=== PATIENT | female | born 2000 | race Hispanic/Latino ===

== ENCOUNTER 2020-12-03 13:10 | Emergency (ER) | payer OTHER ==
[~2020-12-03] VITALS: Ht 167.6 cm; Wt 57.0 kg
[2020-12-03 16:15] VITALS: BP 112/72
== END 2020-12-03 16:16 | disposition home or self-care (01) ==
LOC: M ED 13:10
DX: Z32.02 Encounter for pregnancy test, result negative (principal)

== ENCOUNTER 2021-02-15 20:08 | Emergency (ER) | payer OTHER ==
[~2021-02-15] VITALS: Ht 167.6 cm; Wt 56.4 kg
[2021-02-15 22:28] LABS: BASO # 0.1 10^3/uL (0.0-0.2); BASO % 0.4 % (0.0-1.0); EOS # 0.3 10^3/uL (0.0-0.5); EOS % 1.9 % (0.0-3.0); HEMOGLOBIN 13.8 g/dl (12.0-15.5); LYMPH # 3.2 10^3/uL (1.5-5.0); LYMPH % 20.1 % (24.0-44.0); MEAN CORPUSCULAR HEMOGLOBIN 29.1 pg (27.0-33.0); MEAN CORPUSCULAR HGB CONC 34.5 g/dl (32.0-36.5); MEAN CORPUSCULAR VOLUME 84.2 fl (80.0-96.0); MONO # 1.1 10^3/uL (0.0-0.8); MONO % 6.9 % (2.0-8.0); NEUTROPHILS # 11.2 10^3/uL (1.5-8.5); NEUTROPHILS % 70.3 % (36.0-66.0); PLATELET COUNT, AUTOMATED 410 10^3/uL (150-450); RED BLOOD COUNT 4.75 10^6/uL (4.00-5.40)
[2021-02-15 23:15] LABS: BLOOD UREA NITROGEN 9 MG/DL (7-18); CARBON DIOXIDE LEVEL 24 MEQ/L (21-32); CHLORIDE LEVEL 105 MEQ/L (98-107); CREATININE FOR GFR 0.51 MG/DL (0.55-1.30); GLUCOSE, FASTING 83 MG/DL (70-100); HCG, SERUM QUANTITATIVE 61608 MIU/ML; POTASSIUM SERUM 3.7 MEQ/L (3.5-5.1); SODIUM LEVEL 138 MEQ/L (136-145)
[2021-02-15 23:27] LABS: APPEARANCE, URINE CLEAR (CLEAR); COLOR, URINE YELLOW (YELLOW)
[2021-02-15 23:28] LABS: BACTERIA, URINE AUTO NEGATIVE (NEGATIVE); BILIRUBIN, URINE AUTO NEGATIVE (NEGATIVE); BLOOD, URINE BLOOD 2+ (NEGATIVE); GLUCOSE, URINE (UA) AUTO NEGATIVE (NEGATIVE); KETONE, URINE AUTO NEGATIVE (NEGATIVE); LEUKOCYTE ESTERASE, URINE AUTO NEGATIVE (NEGATIVE); NITRITE, URINE AUTO NEGATIVE (NEGATIVE); PROTEIN, URINE AUTO NEGATIVE (NEGATIVE); RBC, URINE AUTO 31 /HPF (0-3); SPECIFIC GRAVITY URINE AUTO 1.015 (1.002-1.035); SQUAMOUS EPITHELIAL CELL UR AU 0 /HPF (0-6); UROBILINOGEN, URINE AUTO 0.2 mg/dL (0.0-2.0); WBC, URINE AUTO 1 /HPF (0-3)
--- NOTE | 2021-02-16 00:27 | REPVR ---
PROCEDURE INFORMATION: Exam: US First Trimester, Transabdominal Exam date and time: 02/15/2021 10:56 PM Age: 20 years old Clinical indication: complicated by abdominal or pelvic pain; Lower; First trimester (<14 weeks 0 days); Gestational age or lmp: 8w 6d; ; Additional info: Vag bleeding TECHNIQUE: Imaging protocol: Real-time transabdominal obstetrical ultrasound of the maternal pelvis and a first trimester , less than 14 weeks 0 days, with image documentation. COMPARISON: No relevant prior studies available. FINDINGS: Gestation: Single intrauterine gestation. Embryonic/ heart rate: heart rate 161 bpm. Extra-embryonic membranes/Placenta: Large hypoechoic avascular structure exerting significant mass effect on the gestational sac adjacent to the gestational sac measuring 5.4 x 5.8 x 2.5 cm. Amniotic fluid: Amniotic fluid is normal for gestational age. BIOMETRY: Gestational age (AUA): Gestational age 8 weeks and 6 days. Estimated due date (AUA): Estimated due date 09/20/2021. Mean sac diameter: Mean sac diameter 3.2 cm. [place]-Rump length: [place]-rump length 2.4 cm. MATERNAL: Uterus: Retroverted uterus measuring 9.3 x 7.3 x 8.4 cm. Cervix: Unremarkable. Right adnexa: The right ovary could not be seen related to bowel gas. Left adnexa: Left ovary could not be seen related to bowel gas. Intraperitoneal space: No free fluid. IMPRESSION: Large hypoechoic avascular structure exerting significant mass effect on the gestational sac adjacent to the gestational sac measuring 5.4 x 5.8 x 2.5 cm. Almost certainly large subchorionic hemorrhage. THIS REPORT CONTAINS FINDINGS THAT MAY BE CRITICAL TO PATIENT CARE. The study was personally discussed on the telephone with care provider Michael RICHMOND on 02/16/2021 12:26 AM EDT. The results were understood and acknowledged. Electronically signed by: Tre Carter On 02/16/2021 00:27:29 AM
[2021-02-16 00:38] VITALS: BP 108/58
--- NOTE | 2021-02-16 11:19 | ED PDOC ---
Post-Departure Follow-Up dr li at [facility] faxed formal report of 1st trimester US for fu Bridget Diana MD Feb 16, 2021 11:19
== END 2021-02-16 01:29 | disposition home or self-care (01) ==
LOC: M ED 20:08
DX: O20.8 Other hemorrhage in early pregnancy (principal); Z3A.08 8 weeks gestation of pregnancy

== ENCOUNTER → 2021-06-07 | Outpatient (REF) | LOC: M LABSMTC 11:50 | PROVIDERS: ATTEND Pediatrics | DX: Z11.52 Encounter for screening for COVID-19 (principal) ==